=== PATIENT | female | born 1975 | race Caucasian/White ===

== ENCOUNTER → 2018-02-12 | Outpatient (CLI) | payer OTHER | LOC: CAT 14:21 | DX: J32.9 Chronic sinusitis, unspecified (principal); J33.9 Nasal polyp, unspecified; J45.909 Unspecified asthma, uncomplicated ==

== ENCOUNTER → 2018-02-28 | Outpatient (CLI) | payer OTHER | LOC: RAD 00:38 | DX: Z12.31 Encounter for screening mammogram for malignant neoplasm of breast (principal) ==

== ENCOUNTER → 2018-05-21 | Outpatient (CLI) | payer OTHER | LOC: MRI 09:59 | DX: R90.82 White matter disease, unspecified (principal) ==

== ENCOUNTER → 2018-06-28 | Outpatient (CLI) | payer OTHER ==
--- NOTE | 2018-06-28 15:16 | 2DMMODE ---
[facility] [address] [place] [address] 2 D/M-MODE ECHOCARDIOGRAM Name: SONY MISTRY Room #: REG [facility]#: [id number] Admission: 06/28/18 Attend Phys: Kiel Niño MD Discharge: Date of : 79 Date of Service: 06/28/18 1515 Report #: [id number] THIS REPORT FOR: //name// APPROVED REPORT Study performed: 06/28/2018 14:02:08 EXAM: Comprehensive 2D, Doppler, and color-flow Echocardiogram Patient Location: Out-Patient Status: routine BSA: 1.72 HR: 67 bpm Rhythm: NSR Other Information Study Quality: Good Indications Migraines. Echo Enhancing Agent Indication: Rule out Shunt Agent(s) / Amount(s) Used: Agitated Saline 12 cc 2D Dimensions RVDd: 30.38 mm IVSd: 7.21 (7-11mm) LVOT Diam: 19.56 (18-24mm) LVDd: 49.96 mm PWd: 7.73 (7-11mm) Ascending Ao: 31.38 (22-36mm) LVDs: 31.98 (25-40mm) Aortic Root: 31.14 mm Volumes Left Atrial Volume (Systole) Single Plane 4CH: 24.41 mL Single Plane 2CH: 33.44 mL LA ESV Index: 18.00 mL/m2 Aortic Valve AoV Peak Michael.: 1.45 m/s AO Peak Gr.: 8.45 mmHg LVOT Max P.55 mmHg LVOT Max V: 0.94 m/s HERIBERTO Vmax: 1.95 cm2 [facility] [address] [address] 2 D/M-MODE ECHOCARDIOGRAM Name: SONY MISTRY Room #: REG [facility]#: [id number] Admission: 06/28/18 Attend Phys: Kiel Niño MD Discharge: Date of : 79 Date of Service: 06/28/18 1515 Report #: [id number] Mitral Valve E/A Ratio: 1.7 MV Decel. Time: 228.26 ms MV E Max Michael.: 0.82 m/s MV A Michael.: 0.48 m/s MV PHT: 66.20 ms IVRT: 55.36 ms Pulmonary Valve PV Peak Michael.: 1.01 m/s PV Peak Gr.: 4.12 mmHg Pulmonary Vein P Vein S: 0.50 m/s P Vein A: 0.27 m/s P Vein D: 0.59 m/s P Vein A Dur.: 131.5 msec P Vein S/D Ratio: 0.85 Tricuspid Valve TR Peak Michael.: 1.87 m/s RAP Estimate: 5.00 mmHg TR Peak Gr.: 14.03 mmHg PA Pressure: 19.00 mmHg Left Ventricle The left ventricle is normal size. There is normal LV segmental wall motion. There is normal left ventricular wall thickness. Left ventricular systolic function is normal. LVEF is 55%. The left ventricular diastolic function is normal. Right Ventricle The right ventricle is normal size. The right ventricular systolic function is normal. Atria The left atrium size is normal. Late appearance of 1-2 bubbles after 7-10 beats. No intracardiac shunting, cannot exclude very small amount of extracardiac shunting The right atrium size is normal. Aortic Valve The aortic valve is normal in structure. No aortic regurgitation is present. There is no aortic valvular stenosis. Mitral Valve The mitral valve is normal in structure. Trace mitral regurgitation. No evidence of mitral valve stenosis. Tricuspid Valve [facility] [address] [place] [address] 2 D/M-MODE ECHOCARDIOGRAM Name: SONY MISTRY Room #: REG [facility]#: [id number] Admission: 06/28/18 Attend Phys: Kiel Niño MD Discharge: Date of : 79 Date of Service: 06/28/18 1515 Report #: [id number] The tricuspid valve is normal in structure. Trace tricuspid regurgitation. Estimated PAP of 20mmHg. Pulmonic Valve The pulmonary valve is normal in structure. Mild pulmonic regurgitation. Great Vessels The aortic root is normal in size. The ascending aorta is normal in size. IVC is normal in size and collapses >50% with inspiration. Pericardium There is no pericardial effusion. <Conclusion> Left ventricular systolic function is normal. There is normal LV segmental wall motion. LVEF is 55%. Normal diastolic function Structural valve disease was absent. No significant regurgitant or stenotic lesions. Late appearance of 1-2 bubbles after 7-10 beats. No intracardiac shunting, cannot exclude very small amount of extracardiac shunting Trace tricuspid regurgitation. Normal pulmonary artery pressures There is no pericardial effusion. <ELECTRONICALLY SIGNED> By: William Damico MD, [facility] 06/28/18 1515 1515 1515 William Damico MD, FAC /INF
== END ==
LOC: CV 07:02
DX: G43.919 Migraine, unspecified, intractable, without status migrainosus (principal)

== ENCOUNTER → 2018-07-05 | Outpatient (CLI) | payer OTHER | LOC: CAT 15:25 | DX: J34.2 Deviated nasal septum (principal); J34.89 Other specified disorders of nose and nasal sinuses; R51 Headache ==